=== PATIENT | male | born 1985 | race Caucasian/White ===

== ENCOUNTER 2017-07-25 10:13 | Emergency (ER) | payer OTHER ==
[~2017-07-25 10:13] MED LIST: DIAZEPAM PO
== END 2017-07-25 12:15 | disposition home or self-care (01) ==
LOC: SED 10:13
DX: M79.602 Pain in left arm (principal); M25.522 Pain in left elbow; M25.532 Pain in left wrist; M79.632 Pain in left forearm; R20.2 Paresthesia of skin; Z91.040 Latex allergy status; Z88.8 Allergy status to other drugs, medicaments and biological substances; Z79.899 Other long term (current) drug therapy
CPT/HCPCS: 99284